=== PATIENT | female | born 1955 | race Caucasian/White ===

== ENCOUNTER → 2017-05-31 | Outpatient (CLI) | payer OTHER | LOC: BRMIMAGING 13:24 | PROVIDERS: ATTEND Emergency Medicine | DX: Z13.820 Encounter for screening for osteoporosis (principal); M85.89 Other specified disorders of bone density and structure, multiple sites ==

== ENCOUNTER → 2017-07-31 | Outpatient (CLI) | payer OTHER | LOC: FIMAGING 12:25 | PROVIDERS: ATTEND Emergency Medicine | DX: Z12.31 Encounter for screening mammogram for malignant neoplasm of breast (principal) ==

== ENCOUNTER → 2017-12-10 | Outpatient (CLI) | payer OTHER | LOC: FIMAGING 09:20 | PROVIDERS: ATTEND Orthopaedic Surgery | DX: M17.11 Unilateral primary osteoarthritis, right knee (principal) ==

== ENCOUNTER 2017-12-22 11:15 | Observation (INO) | payer OTHER ==
[2017-12-29] MEDS ORDERED: ROPIVACAINE 0.2% 80 MG, EPINEPHrine 0.2 MG, KETOROLAC TROMETHAMINE 30 MG in SYRINGE 0 ML IU ONE (06:00)
[2017-12-29] MEDS ORDERED: TRANEXAMIC ACID 3,000 MG in NS (SYRINGE) 50 ML IRR ONE (06:00)
--- NOTE | 2017-12-29 07:16 | PDHPUP ---
History & Physical Update H&P update statement: This history and physical update is based on an assessment of the patient which was completed after admission or registration (within 24 hours), but prior to the surgery/procedure. H&P update: H&P reviewed & patient examined, no change in patient's condition since H&P completed
[2017-12-29] MEDS ORDERED: TRANEXAMIC ACID 3,000 MG/50 ML BAG IRR ONE (07:49)
[2017-12-29] MEDS ORDERED: ceFAZolin 2 GM/DEXTROSE 100 ML IV ONE (08:55)
[2017-12-29] MEDS ORDERED: ACETAMINOPHEN 325 MG TAB PO ONE (08:55)
[2017-12-29] MEDS ORDERED: FAMOTIDINE 20 MG TAB PO ONE (08:55)
[2017-12-29] MEDS ORDERED: DEXAMETHASONE 4 MG/ML VIAL IVP ONE (08:55)
[2017-12-29] MEDS ORDERED: LR 1,000 ML IV ONE (09:06)
[2017-12-29] MEDS ORDERED: MIDAZOLAM 2 MG/2 ML VIAL IVP ONE (09:31)
--- NOTE | 2017-12-29 09:31 | PDANEPAE ---
ANE History of Present Illness Right TKA ANE Past Medical History - Cardiovascular History Hx Hypertension: No Hx Arrhythmias: No Hx Chest Pain: No Hx Coronary Artery / Peripheral Vascular Disease: No Hx CHF / Valvular Disease: No Hx Palpitations: No - Pulmonary History Hx COPD: No Hx Asthma/Reactive Airway Disease: No Hx Recent Upper Respiratory Infection: No Hx Oxygen in Use at Home: No Hx Sleep Apnea: No Sleep Apnea Screening Result - Last Documented: Negative - Neurologic History Hx Cerebrovascular Accident: No Hx Seizures: No Hx Dementia: No - Endocrine History Hx Diabetes: No - Renal History Hx Renal Disorders: No - Liver History Hx Hepatic Disorders: No - Neurological & Psychiatric Hx Hx Neurological and Psychiatric Disorders: No - Congenital Disorder History Hx Congenital Disorders: No - GI History Hx Gastrointestinal Disorders: No - Other Health History Other Health History: OA-KNEES -R KNEE MORE PAINFUL. - Chronic Pain History Chronic Pain: Yes (R KNEE) - Surgical History Prior Surgeries: ORIF R WRIST. ORIF L ANKLE. CYSTOSCOPY ANE Review of Systems Review of Systems: - Exercise capacity METS (RN): 6 METS ANE Patient History - Allergies Allergies/Adverse Reactions: Iodinated Contrast- Oral and IV Dye Allergy (Verified 12/29/17 08:59) oxycodone [From Percocet] Allergy (Verified 12/29/17 10:53) Itching - Home Medications Home Medications: Aspirin [Aspirin 81mg (*)] 81 mg PO DAILY 12/02/17 [Last Taken 12/15/17] Compounded Progesterone Crm 1 jojo TP DAILY 12/02/17 [Last Taken 12/15/17] Compounded Testosterone Crm 1 jojo TP DAILY 12/02/17 [Last Taken 12/15/17] Wysox-3 Fatty Acids [Fish Oil 1000 mg (*)] 1,000 mg PO DAILY 12/02/17 [Last Taken 12/15/17] Unk Hrt Pill 12/02/17 [Last Taken 12/15/17] Vitamin B Complex [Vitamin B Complex (OTC)] 1 each PO DAILY 12/02/17 [Last Taken 12/15/17] - NPO status NPO Since - Liquids (Date): 12/29/17 NPO Since - Liquids (Time): 07:00 NPO Since - Solids (Date): 12/28/17 NPO Since - Solids (Time): 21:00 - Smoking Hx Smoking Status: Never smoked ANE Labs/Vital Signs - Vital Signs Height: 170.18 cm Weight: 61.689 kg ANE Physical Exam - Airway Neck exam: decreased ROM Mallampati Score: Class 2 Mouth exam: normal dental/mouth exam - Pulmonary Pulmonary: no respiratory distress, no rales or rhonchi - Cardiovascular Cardiovascular: regular rate and rhythym, no murmur, rub, or gallop - ASA Status ASA Status: II ANE Anesthesia Plan Anesthesia Plan: spinal Total IV Anesthesia: Yes
[2017-12-29] MEDS ORDERED: VANCOMYCIN 1 GM VIAL ONE (10:09)
[2017-12-29] MEDS ORDERED: fentaNYL 100 MCG/2 ML INJ ONE ×2 (10:16→11:54)
[2017-12-29] MEDS ORDERED: PROPOFOL/EMULSION 500 MG/50 ML BOTTLE IV ONE (10:17)
[2017-12-29] MEDS ORDERED: MAGNESIUM HYDROXIDE 30 ML UDCUP PO PRN (10:50)
[2017-12-29] MEDS ORDERED: CYCLOBENZAPRINE 10 MG TAB PO PRN (10:50)
[2017-12-29] MEDS ORDERED: TEMAZEPAM 15 MG CAP PO PRN (10:50)
[2017-12-29] MEDS ORDERED: PROMETHAZINE HCL 25 MG SUPPR PR PRN (10:50)
[2017-12-29] MEDS ORDERED: ONDANSETRON DISINTEGRATING 4 MG TAB PO PRN (10:50)
[2017-12-29] MEDS ORDERED: BISACODYL 10 MG SUPP PR PRN (10:50)
[2017-12-29] MEDS ORDERED: ONDANSETRON 4 MG/2 ML VIAL IVP PRN (10:50)
[2017-12-29] MEDS ORDERED: LACTULOSE 20 GM/30 ML UDCUP PO PRN (10:50)
[2017-12-29] MEDS ORDERED: PROMETHAZINE HCL 25 MG/ML INJ IVP PRN ×2 (10:50→12:56)
[2017-12-29] MEDS ORDERED: diphenhydrAMINE 25 MG CAP PO PRN (10:50)
[2017-12-29] MEDS ORDERED: POLYETHYLENE GLYCOL 3350 17 GM PKT PO PRN (10:50)
[2017-12-29] MEDS ORDERED: METOCLOPRAMIDE 10 MG/2 ML VIAL IVP PRN (10:50)
[2017-12-29] MEDS ORDERED: DIPHENOXYLATE/ATROPINE LOMOTIL 1 TAB PO PRN (10:50)
[2017-12-29] MEDS ORDERED: LR 1,000 ML IV SCH (11:00)
[2017-12-29] MEDS ORDERED: GLYCOPYRROLATE 0.2 MG/1 ML VIAL ONE (11:20)
[2017-12-29] MEDS ORDERED: ONDANSETRON 4 MG/2 ML VIAL ONE (11:20)
[2017-12-29] MEDS ORDERED: LIDOCAINE 2% 5 ML SDV ONE (11:20)
[2017-12-29] MEDS ORDERED: NALOXONE HCL 0.4 MG/ML INJ IVP PRN ×2 (11:22→12:56)
[2017-12-29] MEDS ORDERED: HYDROCODONE/APAP 5/325 TAB PO PRN ×2 (11:22→12:56)
[2017-12-29] MEDS ORDERED: ROPIVACAINE HCL 150 MG/30 ML INJ ONE (11:37)
--- NOTE | 2017-12-29 11:42 | POSTOPPROG ---
Post Op Note Date of Operation: 12/29/17 Surgeon: Karlene Schwarz Soldering Inspector: vera schwarz Anesthesiologist: dr. mckenna Anesthesia: Spinal, Other (Specify) (adductor canal block) Pre-op Diagnosis: right knee OA Post-op Diagnosis: same Indication: right knee pain Procedure: R TKA robotic assisted, computer moises, sensor assisted Findings: severe knee OA Inf/Abcess present in the surg proc area at time of surgery?: No EBL: 50-100
[2017-12-29] MEDS: fentaNYL 100 MCG/2 ML INJ IVP PRN ×2 (11:50→12:00)
[2017-12-29] MEDS ORDERED: ATROPINE SULFATE 1 MG/10 ML SYR ONE (12:01)
[2017-12-29] MEDS ORDERED: ATROPINE SULFATE 1 MG/10 ML SYR IVP PRN (12:23)
[2017-12-29] MEDS ORDERED: HYDROmorphONE/DILAUDID 1 MG/ML INJ IVP PRN (12:56)
[2017-12-29] MEDS: ACETAMINOPHEN 325 MG TAB PO SCH ×4 (13:27→23:25)
[2017-12-29] MEDS: oxyCODONE IR 5 MG TAB PO PRN ×4 (14:16→22:06)
[2017-12-29] MEDS: ceFAZolin 2 GM/DEXTROSE 100 ML IV SCH (18:26)
[2017-12-29] MEDS: SENNOSIDES/DOCUSATE SODIUM TAB PO SCH (20:51)
[2017-12-29] MEDS: FAMOTIDINE 20 MG TAB PO SCH (20:51)
[2017-12-29] MEDS: ASPIRIN 81 MG CHEWABLE TAB PO SCH (20:51)
[2017-12-30] MEDS: ceFAZolin 2 GM/DEXTROSE 100 ML IV SCH (03:11)
--- NOTE | 2017-12-30 05:02 | GOP ---
[f rep st] OPERATIVE REPORT DATE OF OPERATION: 12/29/2017 SURGEON: Alanna Roberts MD NEUROSURGEON: Alanna Roberts MD. ZIPPER TRIMMER: GAVI Damon. ANESTHESIA: Spinal. PREOPERATIVE DIAGNOSIS: Right knee osteoarthritis. POSTOPERATIVE DIAGNOSIS: Right knee osteoarthritis. PROCEDURE PERFORMED: Right total knee arthroplasty with computer navigation, robotic assist. FINDINGS: ESTIMATED BLOOD LOSS: 30 cc. INDICATIONS: The patient is a 62-year-old female with severe and progressive pain and deformity of t he right knee unresponsive to conservative care. The risks and benefits of surgical intervention wer e explained in detail. DESCRIPTION OF PROCEDURE: The patient was brought to the operative room and placed on the table in t he supine position. Spinal anesthesia was induced without difficulty. A pneumatic tourniquet was appl ied about the right proximal thigh, and the leg was prepped and draped in a sterile fashion. The leg mason was applied. After exsanguination by elevation the tourniquet was inflated to 250 mmHg. Incision was made anterior medial from the tibial tuberosity to a point 2 cm proximal to the superior pole of the patella. Medial parapatellar arthrotomy was carried out from the superior pole of the pa tella and posteriorly in line with the fibers of the Type II VMO. The medial collateral ligament was elevated and the infrapatellar fat pad was resected. The patella was everted and the articular surface was excised. A 32 mm patellar button was placed. A ttention was turned first to the distal aspect of the femur. After exposure of the femur, 2 half pin s were placed for fixation of the femoral array. In a similar fashion, 2 pins were placed anteromedi al on the tibia for fixation of the tibial array. External land marking and registration of the hip center was performed without difficulty. Internal femoral and tibial registration was carried out wi thout difficulty and the femoral and tibial checkpoints were placed and verified for accuracy. Attention was turned to the femur. The foot print for the size 2 femoral component was cut with the saw using the [employer] robotic system and verified for accuracy against the CT based plan. In a similar f ashion, the saw was used to cut the footprint for the size 2 tibial component using the [employer] system an d verified for accuracy against the CT based plan. The tibial articular surface was excised without d ifficulty, followed by the intercondylar box cut. The knee was extended and the remnants of the medial and lateral meniscus were excised. The posterior capsule was injected with ropivacaine, epinephrine and Toradol. A size 2 tibial tray was positioned . Trial reduction was then carried out. There was excellent range of motion, alignment, and stability using the 2 x 11 mm polyethylene. All trials were then removed. The joint was thoroughly irrigated and carefully dried. The components were implanted. The permanent 11 mm polyethylene X3 CS Press fit component was placed without difficu lty. The tourniquet was deflated and all bleeders were coagulated. The wound was thoroughly irrigated and closed using interrupted sutures of 2-0 Vicryl for the joint capsule. The subcu was closed with 3-0 V icryl and the skin with 4-0 Monocryl. Dermabond and Steri-Strips were applied followed by a compress senait dressing. The patient was then moved from the operating room to the recovery room in good conditi on, having tolerated the procedure well. PATHOLOGY: Severe patellofemoral osteoarthritis. /[id number]/MODL
[2017-12-30] MEDS: ACETAMINOPHEN 325 MG TAB PO SCH ×2 (05:40→12:25)
[2017-12-30 07:49] VITALS: BP 124/70
--- NOTE | 2017-12-30 08:49 | SOAPPROG ---
SOAP Progress Note Assessment/Plan: Assessment: Patient is doing well POD 1 s/p R TKA Pain management: pain is well controlled on oral pain meds. VTE ppx: recommend aspirin 81 mg BID for 4 weeks, cont DEBORA and SCDs Anemia: level is expected initially postop. Asymptomatic. Continue to monitor D/c planning: d/c to home today pending release from PT Plan: 12/30/17 08:49 Subjective: patient is doing well, denies SOB, chest pain and N/V. Objective: Vital Signs Temp Pulse Resp BP Pulse Ox 36.7 C 47 L 14 124/70 H 95 12/30/17 07:48 12/30/17 07:48 12/30/17 07:48 12/30/17 07:48 12/30/17 07:48 Laboratory Results 12/30/17 04:24 12/29/17 12/30/17 12/31/17 05:59 05:59 05:59 Intake Total 1350 Output Total 1550 150 Balance -200 -150 RLE: incision dressing is clean and dry, NVI, +pf/df ICD10 Worksheet Patient Problems: Problems Problem Status Onset Primary localized osteoarthritis of right knee Acute
[2017-12-30] MEDS: oxyCODONE IR 5 MG TAB PO PRN ×2 (09:03→11:45)
[2017-12-30] MEDS: SENNOSIDES/DOCUSATE SODIUM TAB PO SCH (09:04)
[2017-12-30] MEDS: ASPIRIN 81 MG CHEWABLE TAB PO SCH (09:05)
[2017-12-30] MEDS: FAMOTIDINE 20 MG TAB PO SCH (09:05)
--- NOTE | 2017-12-30 14:54 | POSTANESTH ---
Post Anesthetic Evaluation Cardiovascular Status: Normal, Stable Respiratory Status: Normal, Stable Level of Consciousness/Mental Status: Can Participate in Eval Pain Control: Adequate, Prn Tx Ordered Nausea/Vomiting Control: Adequate, Prn Tx Ordered Complications Possibly Related to Anesthesia: None Noted
--- NOTE | 2017-12-30 16:57 | GDS ---
[f rep st] DISCHARGE SUMMARY ADMISSION DIAGNOSIS: Right knee osteoarthritis. DISCHARGE DIAGNOSIS: Right knee osteoarthritis. PROCEDURE: Right total knee arthroplasty, robotic assisted. VTE PROPHYLAXIS: Recommend baby aspirin 81 mg twice daily for 4 weeks. BRIEF DESCRIPTION OF HOSPITAL STAY: Patient was admitted for an elective joint arthroplasty. The pa tient tolerated the procedure well and has passed physical therapy. The patient was given appropriat e antibiotic prophylaxis and venous thromboembolism prophylaxis. The patient's pain was well control led on oral pain medication, patient was holding down food, and had urinated. Decision was made to d ischarge the patient. The patient was given post-operative prescriptions pre-operatively. PLAN: Follow up as scheduled with Dr. Roberts's office January 20 at 8:45 a.m. /[id number]/MODL
== END 2017-12-30 12:10 | disposition home or self-care (01) ==
LOC: F3N 12-29 08:11
PROVIDERS: ADMIT Orthopaedic Surgery; ATTEND Orthopaedic Surgery
PROC: 0SRC0JZ Replacement of Right Knee Joint with Synthetic Substitute, Open Approach (ICD-10-PCS; principal; 2017-12-29 10:15)
PROC: 8E0YXCZ Robotic Assisted Procedure of Lower Extremity (ICD-10-PCS; principal; 2017-12-29 10:15)
DX: M17.11 Unilateral primary osteoarthritis, right knee (principal); D62 Acute posthemorrhagic anemia
CPT/HCPCS: 20985; 27447; 73560; 97110; 97116; 97161; G0378; J0171; J0461; J0690; J1100; J1885; J2250; J2405; J2704; J2795; J3010; J3370

== ENCOUNTER → 2018-10-13 | Outpatient (CLI) | payer OTHER | LOC: EMCIMAGING 15:03 | PROVIDERS: ATTEND Emergency Medicine | DX: Z12.31 Encounter for screening mammogram for malignant neoplasm of breast (principal) | CPT/HCPCS: 77067-PN ==